=== PATIENT | female | born 1965 | race Caucasian/White ===

== ENCOUNTER → 2022-08-23 | Day surgery (SDC) | payer MEDICARE ==
[~2022-08-23] MED LIST: ALBUTEROL0.63 MG/3 NEB; AMBIEN10 MG PO; ATROVENT HFA12.9 GM INH; BUPIVACAINE 0.5%/EPI 30 ML SDV INJ ONE; BUPIVACAINE HCL 0.5% 10ML MPF VIAL INJ ONE; CROMOLYN S20 MG/1 ML PO; DILAUDID4 MG PO; EFFEXOR XR150 MG PO; EPI PEN IM; FAMOTIDINE 20 MG/2 ML VIAL IV ONE; FENTANYL CITRATE/PF 100MCG/2 ML INJ ONE; GEMTESA75 MG PO; HUMULIN R100 UNIT/2 INJ; HYDROXYZINE HCL25 MG PO; KETAMINE 50MG/5ML SYR ONE; LACTATED RINGER'S 1,000 ML ONE; LEVEMIR100 UNIT/1 SC; LIDOCAINE HCL 2% IR; LISINOPRIL2.5 MG PO; METOPROLOL TART50 MG PO; MIDAZOLAM HCL 2 MG/2 ML VIAL ONE; MS CONTIN30 MG PO; ONDANSETRON HCL INJ 2MG/ML 2ML 2 MG/ML VIAL ONE; ONDANSETRON ODT4 MG PO; PEPCID20 MG PO; PHENERGAN25 MG/1 M1 PO; POVIDONE IODINE 0.05% 0.05 % ML PO ONE; PROPOFOL IV EMULSION 10 MG/ML 20 ML VIAL ONE; PYRIDIUM200 MG PO; SYNTHROID125 MCG PO; VITAMIN B COMP1 EACH PO; XARELTO20 MG PO
[2022-08-23 09:30] VITALS: BP 107/62; PULSE 82; RESP 16; O2SAT 98
== END | disposition home or self-care (01) ==
LOC: OR 06:10 → EDSTATUS 08:00
PROVIDERS: ATTEND Plastic Surgery
DX: M65.332 Trigger finger, left middle finger (principal); E11.9 Type 2 diabetes mellitus without complications; E03.9 Hypothyroidism, unspecified; I10 Essential (primary) hypertension; I49.9 Cardiac arrhythmia, unspecified; J44.9 Chronic obstructive pulmonary disease, unspecified; N30.10 Interstitial cystitis (chronic) without hematuria; G40.909 Epilepsy, unspecified, not intractable, without status epilepticus; Q79.60 Ehlers-Danlos syndrome, unspecified; G89.29 Other chronic pain; F41.9 Anxiety disorder, unspecified; Z01.810 Encounter for preprocedural cardiovascular examination; Z79.02 Long term (current) use of antithrombotics/antiplatelets; Z79.4 Long term (current) use of insulin; Z79.899 Other long term (current) drug therapy; Z99.81 Dependence on supplemental oxygen; Z86.73 Personal history of transient ischemic attack (TIA), and cerebral infarction without residual deficits; Z86.718 Personal history of other venous thrombosis and embolism
CPT/HCPCS: 26055; 36415; 82948; 93005; J0690; J2250; J2405; J2704; J3010; J7121